=== PATIENT | female | born 1940 | race Caucasian/White ===

== ENCOUNTER 2020-08-20 12:51 | Outpatient (REF) | payer MEDICARE, SELFPAY | END 2020-08-20 12:52 | disposition home or self-care (01) | LOC: HO.HOSX 12:51 | PROVIDERS: Visit Provider Orthopaedic Surgery | DX: Z13.89 Encounter for screening for other disorder (principal) ==

== ENCOUNTER 2020-09-04 12:18 | Outpatient (REF) | payer MEDICARE, SELFPAY ==
--- NOTE | ~2020-09-04 | XR_ITS ---
EXAMINATION: XR KNEE, BILATERAL CLINICAL INFORMATION: Pain right knee. COMPARISON: None TECHNIQUE: AP bilateral knees standing one view. Right knee 2 views. FINDINGS: AP BILATERAL KNEE: There is loss of medial and lateral compartment joint space with periarticular spurring in both knees, slightly worse in the right knee. No visible acute fracture, dislocation or lytic process seen. No loose bodies are identified. The soft tissues are normal. RIGHT KNEE: There is moderate loss of patellofemoral compartment joint space with periarticular spurring. No visible fracture or dislocation seen. There is mild suprapatellar joint effusion. 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 There is moderate periarticular spurring but no loose body seen. Moderate degenerative changes medial and mild lateral compartment left knee.
--- NOTE | ~2020-09-04 | XR_ITS ---
EXAMINATION: XR KNEE, BILATERAL CLINICAL INFORMATION: Pain right knee. COMPARISON: None TECHNIQUE: AP bilateral knees standing one view. Right knee 2 views. FINDINGS: AP BILATERAL KNEE: There is loss of medial and lateral compartment joint space with periarticular spurring in both knees, slightly worse in the right knee. No visible acute fracture, dislocation or lytic process seen. No loose bodies are identified. The soft tissues are normal. RIGHT KNEE: There is moderate loss of patellofemoral compartment joint space with periarticular spurring. No visible fracture or dislocation seen. There is mild suprapatellar joint effusion. 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 There is moderate periarticular spurring but no loose body seen. Moderate degenerative changes medial and mild lateral compartment left knee.
== END 2020-09-04 12:19 | disposition home or self-care (01) ==
LOC: HO.HOSX 12:18
PROVIDERS: Visit Provider Orthopaedic Surgery
DX: M17.11 Unilateral primary osteoarthritis, right knee (principal); M25.561 Pain in right knee; M25.562 Pain in left knee
CPT/HCPCS: 20610; 73560; 73565; 99202; J1040